=== PATIENT | female | born 1950 | race Caucasian/White ===

== ENCOUNTER 2022-10-22 14:38 | Outpatient (REF) | payer MEDICARE, SELFPAY ==
[2022-10-22 16:38] LABS: MANUAL DIFF FLAG NO
[2022-10-22 17:34] LABS: Basophils Percent Auto 0.5 % (0-2); Eosinophils Absolute Auto 0.1 X10*3/uL (0.0-0.4); Eosinophils Percent Auto 2.2 % (0-4); Hematocrit 41.5 % (37.0-47.0); Hemoglobin 13.5 g/dl (12.0-16.0); Imm Gran Abs Auto 0.01 X10*3/uL (0.00-0.03); Imm Gran Pct Auto 0.2 % (0.0-0.4); Lymphocytes Absolute Auto 1.2 X10*3/uL (1.2-4.9); Lymphocytes Percent Auto 29.8 % (20-40); Mean Corpuscular HGB Conc 32.5 g/dl (31.0-35.0); Mean Corpuscular Hemoglobin 28.1 pg (27.0-33.0); Mean Corpuscular Volume 86.3 fL (80.0-98.0); Mean Platelet Volume 10.7 fL (9.4-12.3); Monocytes Absolute Auto 0.4 X10*3/uL (0.1-1.2); Monocytes Percent Auto 8.8 % (2-11); Neutrophils Absolute Auto 2.4 x10*3/uL (2.0-8.3); Neutrophils Percent Auto 58.5 % (45-73); Platelet Count 339 X10*3/uL (160-400); Red Blood Count 4.81 X10*6/uL (4.20-5.50); Red Cell Distribution Width 14.6 % (11.0-16.0); White Blood Count 4.1 X10*3/uL (4.8-10.8)
[2022-10-22 18:06] LABS: Alanine Aminotransferase 14 U/L (0-31); Albumin Level 4.4 g/dL (3.5-5.0); Alkaline Phosphatase 77 U/L (39-117); Anion Gap 14 (12-20); Aspartate Amino Transferase 19 U/L (5-31); Bilirubin Total 0.3 mg/dL (0.0-1.0); Blood Urea Nitrogen 24 mg/dL (9-16); C Reactive Protein < 0.10 mg/dL (< or = 0.50); Calcium 9.9 mg/dL (8.4-10.2); Carbon Dioxide 27 mmol/L (22-29); Chloride 105 mmol/L (96-108); Estimated Glomerular Filt Rate 49; Glucose Random 89 mg/dL (60-115); Potassium 4.4 mmol/L (3.3-5.1); Sodium 142 mmol/L (135-145); Total Protein 7.1 g/dL (6.5-8.0)
[2022-10-22 19:00] LABS: Erythrocyte Sedimentation Rate 7 MM/HR (0-20)
[2022-10-25 08:52] LABS: HBsAGNum1 0.35 S/CO (0.00-0.99); Hepatitis A Antibody IgM 0.16 Index (0-0.79); Hepatitis B Core Antibody Nonreactive (Nonreactive); Hepatitis B Surface Antigen Negative (Negative); ~HepC Num1 0.16 S/CO (0.00-0.79); ~Hepatitis A Antibody IgM Nonreactive (Nonreactive); ~Hepatitis B Surface Antibody NONREACTIVE (Nonreactive); ~Hepatitis C Antibody Nonreactive (Nonreactive)
[2022-10-25 11:43] LABS: Complement C3 100 mg/dL (83-193)
[2022-10-25 12:17] LABS: IgA 177 mg/dL (70-320); IgG 1277 mg/dL (600-1540); IgM 135 mg/dL (50-300)
[2022-10-26 19:28] LABS: Anti DNA DS Antibody 4 IU/mL; Antibody to SS-A Antigen <1.0 NEG AI (<1.0 NEG); Antibody to SS-B Antigen <1.0 NEG AI (<1.0 NEG); SM/Ribonucleoprotein Ab <1.0 NEG AI (<1.0 NEG); Smith Protein <1.0 NEG AI (<1.0 NEG)
[2022-10-26 22:54] LABS: Prot Elec - Albumin 4.4 g/dL (3.8-4.8); Prot Elec - Alpha1 0.3 g/dL (0.2-0.3); Prot Elec - Alpha2 0.7 g/dL (0.5-0.9); Prot Elec - Beta 1 0.4 g/dL (0.4-0.6); Prot Elec - Beta 2 0.3 g/dL (0.2-0.5); Prot Elec - Gamma 1.1 g/dL (0.8-1.7); Prot Elec - Total Protein 7.1 g/dL (6.1-8.1)
[2022-10-28 12:39] LABS: Vitamin D 25-OH, D2 <4 ng/mL; Vitamin D 25-OH, D3 96 ng/mL; Vitamin D 25-OH, Total 96 ng/mL (30-100)
[2022-10-30 09:10] LABS: Other Ref Test - Misc SEE COMMENTS
== END 2022-10-22 14:39 | disposition home or self-care (01) ==
LOC: HO.LAB 14:38
PROVIDERS: PCP Dermatology; Visit Provider Student in an Organized Health Care Education/Training Program
DX: M34.9 Systemic sclerosis, unspecified (principal); M81.0 Age-related osteoporosis without current pathological fracture; K21.9 Gastro-esophageal reflux disease without esophagitis; R13.10 Dysphagia, unspecified; Z13.21 Encounter for screening for nutritional disorder; Z11.59 Encounter for screening for other viral diseases; Z72.89 Other problems related to lifestyle; Z79.899 Other long term (current) drug therapy
CPT/HCPCS: 80053; 82306; 82784; 83519; 84165; 85025; 85652; 86140; 86160; 86225; 86235; 86334; 86704; 86706; 86709; 86803; 87340; 99202

== ENCOUNTER 2023-04-22 07:09 | Outpatient (AMB) | payer MEDICARE, SELFPAY ==
--- NOTE | 2023-04-22 07:37 | MHC.OFFVIS ---
Intake Vital Signs 04/22/23 07:38 Height 5 ft 3 in Weight 107 lb 2.314 oz BMI 19.0 BP 124/60 Blood Pressure Location Lt brachial Position Sitting Pulse 49 L Pulse Source Pulse Oximeter Temp 97 F Temp Source Skin Pulse Oximetry (%) 93 Oxygen Delivery Method Room Air Intake Visit Reasons: LSSc Intake Note: Pt last seen 10/22/22 presents today for follow up and test results. Alendronate once weekly Reports recurrent UTI's since last visit. 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 States that she only started taking alendronate December of 2022. States that she takes it with very little applesauce and she is able to tolerate it well. States that she had a couple of UTI over the last few months and will be following up soon with her new PCP. She is doing well otherwise. Denies any cough or shortness of breath. Initial history: This is a 72-year-old female presents for evaluation of limited scleroderma. Her previous nurse first assist left the practice. 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 Patient also had also a esophageal dysmotility and hiatal hernia. Patient states that she is doing well overall. Occasional swelling and stiffness of her knuckles, not currently. Raynaud's is generally well controlled. Takes amlodipine 10 mg daily and has hand and toe warmers. Is very careful in the cold. She denies any shortness of breath. Walks the dog for 30 minutes, 1-1/2 miles without cough or shortness of breath. Is able to do 12 steps without stopping or shortness of breath. States that her GERD is relatively well controlled. She tries not to take omeprazole every day. Over the last 4 years she has been much more careful with swallowing food as sometimes food gets stuck. She makes sure to cut meat very small so they do not get stuck. No new skin changes. [facility] Medical History Presbyopia Dysphagia Osteoporosis Degenerative joint disease Disorder of connective tissue Raynaud's disease Surgical History H/O total hysterectomy Social History Alcohol intake: current Alcohol intake frequency: holidays/special occasions only Alcohol type: wine Patient Tobacco Use Status: Never used Tobacco Review of Systems Const Denies fever(s), Denies weight gain and Denies weight loss Card Denies dyspnea and Denies dyspnea on exertion Resp Denies no additional complaints, Denies cough, Denies dyspnea and Denies dyspnea on exertion Physical Exam Vital Signs: Last Vital Signs Temp 97 F 04/22/23 07:38 Pulse 49 L 04/22/23 07:38 BP 124/60 04/22/23 07:38 Pulse Ox 93 04/22/23 07:38 Oxygen Delivery Method Room Air 04/22/23 07:38 BMI result Body Mass Index 19.0 Const General: cooperative, healthy appearing and comfortable Nutritional Appearance: average body habitus Orientation/consciousness: patient oriented x3 Limitations: no limitations HEENT Head: Yes normocephalic and Yes atraumatic Mouth: moist mucous membranes Resp Effort & Inspection: normal respiratory effort and able to speak in complete sentences Auscultation: clear to auscultation bilaterally Cardio Rate: regular rate Rhythm: regular rhythm GI Inspection: No distended Palpation (GI): Soft to palpation and nontender Neuro General: patient oriented x3 Extrem Other: Multiple telangiectasias 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 DsDNA normal? CRP normal? CMP unremarkable? C3 92 (90-207) C4 normal Labs 12/2021 C3/C4 normal? Urinalysis with microscopic normal CMP unremarkable CBC unremarkable? ESR/CRP normal DsDNA normal Labs 07/2020? C3 56 (>83) C4 normal? RF/CCP/dsDNA/CRP/CPK/ESR all normal/negative DEXA 10/2021? L-spine T-score-1.0? Right Femoral neck T-score -2.5? Right total hip T-score -3.0 Assessment & Plan Assessment & Plan (1) Limited scleroderma: Comment: dx 2006. 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 Doing well overall. No new complaints GERD well controlled with omeprazole.. Raynaud's well controlled. Continue amlodipine and continue conservative measures 2D echo 08/2022 is unremarkable with no signs of pulmonary hypertension Most recent labs were unremarkable Labs before next visit in 6 months (2) Osteoporosis: Code(s): M81.0 - Age-related osteoporosis without current pathological fracture Qualifiers: Osteoporosis type: age-related Presence of current pathological fracture: without current pathological fracture Qualified Code(s): M81.0 - Age-related osteoporosis without current pathological fracture Plan: DEXA 10/2021 showed T-score-3.0 at the right hip. Patient started alendronate 70 mg weekly 12/2022. Well tolerated. Plan to check DEXA 12/2024 (3) Immunization counseling: Code(s): Z71.85 - Encounter for immunization safety counseling Plan: Patient stated that she generally does not get vaccines. Advised patient to try to follow social distancing practices and wear a mask when in a crowded places especially as respiratory viral infections are on the rise this season. Plan I spent 25 minutes reviewing patient's chart, evaluating patient, ordering diagnostic workup, counseling patient and documenting in the chart Orders: Orders Comprehensive Met. Panel 6 Months M34.9 - Systemic sclerosis, unspecified C Reactive Protein 6 Months M34.9 - Systemic sclerosis, unspecified UA w Microscopic 6 Months M34.9 - Systemic sclerosis, unspecified Other Ref Test - Misc 6 Months M81.0 - Age-related osteoporosis without current pathological fracture Complete Blood Count Auto Diff 6 Months M34.9 - Systemic sclerosis, unspecified Erythrocyte Sedimentation Rate 6 Months M34.9 - Systemic sclerosis, unspecified Complement C3 6 Months M34.9 - Systemic sclerosis, unspecified Anti DNA DS Antibody 6 Months M34.9 - Systemic sclerosis, unspecified Complement C4 6 Months M34.9 - Systemic sclerosis, unspecified Protein Creatinine Ratio, Ur 6 Months M34.9 - Systemic sclerosis, unspecified Coding Level of Care Code Est Pt Level 4 (78418) Diagnoses Limited scleroderma M34.9 Age-related osteoporosis without current pathological fracture M81.0 Osteoporosis type: age-related Presence of current pathological fracture: without current pathological fracture Immunization counseling Z71.85
[2023-04-22 07:38] VITALS: BP 124/60; PULSE 49; TEMP 36.1; O2SAT 93; BMI 19.0
== END 2023-04-22 08:02 | disposition home or self-care (01) ==
PROVIDERS: PCP Family Medicine; Visit Provider Student in an Organized Health Care Education/Training Program
DX: M34.9 Systemic sclerosis, unspecified (principal); M81.0 Age-related osteoporosis without current pathological fracture; Z71.85 Encounter for immunization safety counseling
CPT/HCPCS: 99214

== ENCOUNTER → 2023-04-22 07:09 | Outpatient (BNVA) | payer MEDICARE, SELFPAY | PROVIDERS: Visit Provider Student in an Organized Health Care Education/Training Program | DX: M34.9 Systemic sclerosis, unspecified (principal); M81.0 Age-related osteoporosis without current pathological fracture; Z71.85 Encounter for immunization safety counseling | CPT/HCPCS: 99212 ==

== ENCOUNTER 2023-10-13 06:21 | Outpatient (REF) | payer MEDICARE, SELFPAY ==
[2023-10-13 06:43] LABS: MANUAL DIFF FLAG NO
[2023-10-13 07:42] LABS: Appearance Urine Clear; Color Urine Yellow; Glucose Urine UA Negative (Negative); Leukocyte Esterase Urine Trace (Negative); Nitrite Urine Negative (Negative); Specific Gravity - Urine <= 1.005 (1.005-1.025); UMIC TRIGGER UA YES; Urine Blood Trace (Negative); Urine Ketones Negative (Negative); Urine Protein Negative (Neg-Trace)
[2023-10-13 07:42] LABS: Eosinophils Absolute Auto 0.1 X10*3/uL (0.0-0.4); Eosinophils Percent Auto 2.6 % (0-4); Hematocrit 43.9 % (37.0-47.0); Hemoglobin 14.6 g/dl (12.0-16.0); Imm Gran Abs Auto 0.01 X10*3/uL (0.00-0.03); Imm Gran Pct Auto 0.3 % (0.0-0.4); Lymphocytes Absolute Auto 1.1 X10*3/uL (1.2-4.9); Lymphocytes Percent Auto 36.5 % (20-40); Mean Corpuscular HGB Conc 33.3 g/dl (31.0-35.0); Mean Corpuscular Hemoglobin 29.4 pg (27.0-33.0); Mean Corpuscular Volume 88.3 fL (80.0-98.0); Mean Platelet Volume 10.3 fL (9.4-12.3); Monocytes Absolute Auto 0.3 X10*3/uL (0.1-1.2); Monocytes Percent Auto 10.9 % (2-11); Neutrophils Absolute Auto 1.5 x10*3/uL (2.0-8.3); Neutrophils Percent Auto 48.7 % (45-73); Platelet Count 316 X10*3/uL (160-400); Red Blood Count 4.97 X10*6/uL (4.20-5.50); Red Cell Distribution Width 13.8 % (11.0-16.0)
[2023-10-13 07:47] LABS: Bacteria Urine 1+ (None Seen); Hyaline Casts Urine 0-2 /LPF (0-2); RBC Urine 0-2 /HPF (0-2); Squamous Epithelial Cell Urine 0-2 /HPF (0-2); WBC Urine 0-5 /HPF (0-5)
[2023-10-13 08:09] LABS: Creatinine Urine 15.15 mg/dL; Total Protein Urine Random < 7 mg/dL (<12)
[2023-10-13 08:15] LABS: Alanine Aminotransferase 15 U/L (0-31); Albumin Level 4.4 g/dL (3.5-5.0); Alkaline Phosphatase 44 U/L (39-117); Anion Gap 13 (12-20); Aspartate Amino Transferase 22 U/L (5-31); Bilirubin Total 0.4 mg/dL (0.0-1.0); Blood Urea Nitrogen 20 mg/dL (9-16); C Reactive Protein < 0.10 mg/dL (< or = 0.50); Calcium 10.1 mg/dL (8.4-10.2); Carbon Dioxide 25 mmol/L (22-29); Chloride 107 mmol/L (96-108); Estimated Glomerular Filt Rate > 60; Glucose Random 91 mg/dL (60-115); Potassium 4.3 mmol/L (3.3-5.1); Sodium 141 mmol/L (135-145); Total Protein 7.7 g/dL (6.5-8.0)
[2023-10-13 08:22] LABS: Erythrocyte Sedimentation Rate 5 MM/HR (0-20)
[2023-10-14 15:44] LABS: Complement C3 103 mg/dL (83-193)
[2023-10-14 21:24] LABS: Anti DNA DS Antibody 4 IU/mL
[2023-10-16 17:08] LABS: Procollagen Type I Intact N 15 mcg/L (see note)
== END 2023-10-13 06:22 | disposition home or self-care (01) ==
LOC: HO.LAB 06:21
PROVIDERS: PCP Family Medicine; Visit Provider Student in an Organized Health Care Education/Training Program
DX: M34.9 Systemic sclerosis, unspecified (principal)
CPT/HCPCS: 36415; 80053; 81001; 82570; 83519; 84156; 85025; 85652; 86140; 86160; 86225

== ENCOUNTER 2023-10-17 07:48 | Outpatient (AMB) | payer MEDICARE, SELFPAY ==
--- NOTE | 2023-10-17 07:56 | A.OFFVIS_ITS ---
Vital Signs 10/17/23 07:58 Height 5 ft 3 in Weight 106 lb 14.787 oz BMI 18.9 BP 110/64 Blood Pressure Location Rt brachial Position Sitting Pulse 76 Pulse Source Pulse Oximeter Pulse Oximetry (%) 99 Oxygen Delivery Method Room Air Intake Visit Reasons: cc Intake Note: Patient last seen 04/22/23 presents today for follow up and test results. 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 Doing well overall. States that she gets intermittent teeth sensitivity a sensation that her teeth are cold. When she had her dental cleaning last visit she would advised to use sensitive toothpaste. She gets intermittent pain in her knuckles, but symptoms are very minimal and do not last long. Gets recurrent episodes of heartburn about twice a week which goes away with Tums. Continues with omeprazole 20 mg daily. Otherwise she has been feeling well. Denies any chest pain or shortness of breath. Denies any cough. Initial history: This is a 72-year-old female presents for evaluation of limited scleroderma. Her previous advanced practice rn left the practice. 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 Patient also had also a esophageal dysmotility and hiatal hernia. Patient states that she is doing well overall. Occasional swelling and stiffness of her knuckles, not currently. Raynaud's is generally well controlled. Takes amlodipine 10 mg daily and has hand and toe warmers. Is very careful in the cold. She denies any shortness of breath. Walks the dog for 30 minutes, 1-1/2 miles without cough or shortness of breath. Is able to do 12 steps without stopping or shortness of breath. States that her GERD is relatively well controlled. She tries not to take omeprazole every day. Over the last 4 years she has been much more careful with swallowing food as sometimes food gets stuck. She makes sure to cut meat very small so they do not get stuck. No new skin changes. [facility] Medical History Presbyopia Dysphagia Osteoporosis Degenerative joint disease Disorder of connective tissue Raynaud's disease Surgical History H/O total hysterectomy Social History Alcohol intake: current Alcohol intake frequency: holidays/special occasions only Alcohol type: wine Patient Tobacco Use Status: Never used Tobacco Review of Systems Const Denies fever(s), Denies weight gain and Denies weight loss Card Denies dyspnea and Denies dyspnea on exertion Resp Denies no additional complaints, Denies cough, Denies dyspnea and Denies dyspnea on exertion Physical Exam Vital Signs: Last Vital Signs Pulse 76 10/17/23 07:58 BP 110/64 10/17/23 07:58 Pulse Ox 99 10/17/23 07:58 Oxygen Delivery Method Room Air 10/17/23 07:58 BMI result Body Mass Index 18.9 Const General: cooperative, healthy appearing and comfortable Nutritional Appearance: average body habitus Orientation/consciousness: patient oriented x3 Limitations: no limitations HEENT Head: Yes normocephalic and Yes atraumatic Mouth: moist mucous membranes Resp Effort & Inspection: normal respiratory effort and able to speak in complete sentences Auscultation: clear to auscultation bilaterally Cardio Rate: regular rate Rhythm: regular rhythm GI Inspection: No distended Palpation (GI): Soft to palpation and nontender Neuro General: patient oriented x3 Extrem Other: Multiple telangiectasias Bilateral sclerodactyly Bilateral osteoarthritic changes of both hands with Heberden's nodes Mild swelling over the right ulnar styloid nontender (could be a ganglion cyst) Right 3rd MCP swelling and tenderness Left 3rd MCP swelling and tenderness Flexion contracture of right hand MCPs and slight ulnar deviation Negative MCP squeeze test bilateral Normal nailfold capillaroscopy Results Reviewed Results Reviewed: Labs 06/2021 C3 34(83-193) C4-8 (15-57) CRP/CPK Labs 05/2022? DsDNA normal? CRP normal? CMP unremarkable? C3 92 (90-207) C4 normal Labs 12/2021 C3/C4 normal? Urinalysis with microscopic normal CMP unremarkable CBC unremarkable? ESR/CRP normal DsDNA normal Labs 07/2020? C3 56 (>83) C4 normal? RF/CCP/dsDNA/CRP/CPK/ESR all normal/negative DEXA 10/2021? L-spine T-score-1.0? Right Femoral neck T-score -2.5? Right total hip T-score -3.0 Assessment & Plan Assessment & Plan (1) Limited scleroderma: Comment: dx 2005. 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 Doing well overall. No new complaints Couple of swollen joints on exam today. Advised patient to let me know if she starts having more joints involved, or more severe and persistent symptoms. Can consider hydroxychloroquine GERD well controlled with omeprazole 20 mg daily Raynaud's well controlled. Continue amlodipine and continue conservative measures 2D echo 08/2022 is unremarkable with no signs of pulmonary hypertension. Plan to repeat 2D echo and PFTs next year to screen for ILD/PAH Labs unremarkable Labs before next visit in 6 months (2) Osteoporosis: Comment: Alendronate started 12/2022 Code(s): M81.0 - Age-related osteoporosis without current pathological fracture Category: Medical Qualifiers: Osteoporosis type: age-related Presence of current pathological fracture: without current pathological fracture Qualified Code(s): M81.0 - Age- related osteoporosis without current pathological fracture Plan: DEXA 10/2021 showed T-score-3.0 at the right hip. Patient started alendronate 70 mg weekly 12/2022. Well tolerated. Plan to check DEXA 12/2024 Plan I spent 25 minutes reviewing patient's chart, evaluating patient, ordering diagnostic workup, counseling patient and documenting in the chart Orders: Orders Anti DNA DS Antibody 6 Months M34.9 - Systemic sclerosis, unspecified Complement C4 6 Months M34.9 - Systemic sclerosis, unspecified C Reactive Protein 6 Months M34.9 - Systemic sclerosis, unspecified Protein Creatinine Ratio, Ur 6 Months M34.9 - Systemic sclerosis, unspecified UA w Microscopic 6 Months M34.9 - Systemic sclerosis, unspecified Complement C3 6 Months M34.9 - Systemic sclerosis, unspecified Erythrocyte Sedimentation Rate 6 Months M34.9 - Systemic sclerosis, unspecified Complete Blood Count Auto Diff 6 Months M34.9 - Systemic sclerosis, unspecified Comprehensive Met. Panel 6 Months M34.9 - Systemic sclerosis, unspecified
[2023-10-17 07:58] VITALS: BP 110/64; PULSE 76; O2SAT 99; BMI 18.9
== END 2023-10-17 08:19 | disposition home or self-care (01) ==
PROVIDERS: PCP Dermatology; Visit Provider Student in an Organized Health Care Education/Training Program
DX: M34.9 Systemic sclerosis, unspecified (principal); M81.0 Age-related osteoporosis without current pathological fracture
CPT/HCPCS: 99214

== ENCOUNTER → 2023-10-17 07:48 | Outpatient (BNVA) | payer MEDICARE, SELFPAY | PROVIDERS: PCP Dermatology; Visit Provider Student in an Organized Health Care Education/Training Program | DX: M34.9 Systemic sclerosis, unspecified (principal); M81.0 Age-related osteoporosis without current pathological fracture | CPT/HCPCS: 99212 ==

== ENCOUNTER 2024-04-13 07:03 | Outpatient (REF) | payer MEDICARE, SELFPAY ==
[2024-04-13 07:27] LABS: MANUAL DIFF FLAG NO
[2024-04-13 07:47] LABS: Basophils Percent Auto 0.8 % (0-2); Eosinophils Absolute Auto 0.3 X10*3/uL (0.0-0.4); Hematocrit 42.7 % (37.0-47.0); Imm Gran Abs Auto 0.02 X10*3/uL (0.00-0.03); Imm Gran Pct Auto 0.4 % (0.0-0.4); Lymphocytes Percent Auto 20.1 % (20-40); Mean Corpuscular HGB Conc 32.8 g/dl (31.0-35.0); Mean Corpuscular Hemoglobin 28.4 pg (27.0-33.0); Mean Corpuscular Volume 86.6 fL (80.0-98.0); Mean Platelet Volume 9.4 fL (9.4-12.3); Monocytes Absolute Auto 0.7 X10*3/uL (0.1-1.2); Monocytes Percent Auto 13.2 % (2-11); Neutrophils Absolute Auto 3.1 x10*3/uL (2.0-8.3); Neutrophils Percent Auto 60.5 % (45-73); Platelet Count 445 X10*3/uL (160-400); Red Blood Count 4.93 X10*6/uL (4.20-5.50); Red Cell Distribution Width 13.6 % (11.0-16.0); White Blood Count 5.2 X10*3/uL (4.8-10.8)
[2024-04-13 08:22] LABS: Alanine Aminotransferase 21 U/L (0-31); Albumin Level 4.2 g/dL (3.5-5.0); Alkaline Phosphatase 64 U/L (39-117); Anion Gap 15 (12-20); Aspartate Amino Transferase 22 U/L (5-31); Bilirubin Total 0.4 mg/dL (0.0-1.0); Blood Urea Nitrogen 19 mg/dL (9-16); C Reactive Protein 0.34 mg/dL (< or = 0.50); Calcium 9.8 mg/dL (8.4-10.2); Carbon Dioxide 26 mmol/L (22-29); Chloride 105 mmol/L (96-108); Estimated Glomerular Filt Rate > 60; Glucose Random 89 mg/dL (60-115); Potassium 3.6 mmol/L (3.3-5.1); Sodium 142 mmol/L (135-145); Total Protein 7.2 g/dL (6.5-8.0)
[2024-04-13 08:24] LABS: Erythrocyte Sedimentation Rate 16 MM/HR (0-20)
[2024-04-16 11:03] LABS: Complement C3 131 mg/dL (83-193)
[2024-04-16 19:53] LABS: Anti DNA DS Antibody 3 IU/mL
== END 2024-04-13 07:04 | disposition home or self-care (01) ==
LOC: HO.LAB 07:03
PROVIDERS: PCP Nurse Practitioner Family; Visit Provider Student in an Organized Health Care Education/Training Program
DX: M34.9 Systemic sclerosis, unspecified (principal)
CPT/HCPCS: 36415; 80053; 85025; 85652; 86140; 86160; 86225

== ENCOUNTER 2024-04-16 07:40 | Outpatient (REF) | payer MEDICARE, SELFPAY ==
[2024-04-16 07:58] LABS: Appearance Urine Cloudy; Color Urine Yellow; Glucose Urine UA Negative (Negative); Leukocyte Esterase Urine Moderate (2+) (Negative); Nitrite Urine Positive (Negative); PH 7.5 (5.0-9.0); UMIC TRIGGER UA YES; Urine Blood Trace (Negative); Urine Ketones Negative (Negative); Urine Protein Negative (Neg-Trace)
[2024-04-16 08:00] LABS: Bacteria Urine 4+ (None Seen); Hyaline Casts Urine 0-2 /LPF (0-2); WBC Urine >50 /HPF (0-5)
[2024-04-16 08:19] LABS: Creatinine Urine 64.18 mg/dL; Protein/Creatinine Ratio, Ur 0.12 (<0.2); Total Protein Urine Random 8 mg/dL (<12)
== END 2024-04-16 07:41 | disposition home or self-care (01) ==
LOC: HO.LNP 07:40
PROVIDERS: Visit Provider Student in an Organized Health Care Education/Training Program
DX: M34.9 Systemic sclerosis, unspecified (principal)
CPT/HCPCS: 81001; 82570; 84156

== ENCOUNTER 2024-04-20 08:04 | Outpatient (AMB) | payer MEDICARE, SELFPAY ==
--- NOTE | 2024-04-20 08:12 | A.OFFVIS_ITS ---
Vital Signs 04/20/24 08:15 Height 5 ft 3 in Weight 104 lb 11.513 oz BMI 18.5 BP 120/60 Blood Pressure Location Rt brachial Position Sitting Pulse 76 Pulse Source Pulse Oximeter Pulse Oximetry (%) 98 Oxygen Delivery Method Room Air Intake Visit Reasons: LSSc/CM Intake Note: Patient presents for LSSc. 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 Doing well overall. She states that she continues to have intermittent flare-ups of joint pain usually affecting her right hand, that occur about once a week and lasts a few hours. She denies any morning stiffness. She gets intermittent heartburn. She uses omeprazole about once a month. Takes Tums more frequently. Otherwise she has been feeling well. Denies any chest pain or shortness of breath. Denies any cough. Initial history: This is a 72-year-old female presents for evaluation of limited scleroderma. Her previous forming yardage control operator left the practice. 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 Patient also had also a esophageal dysmotility and hiatal hernia. Patient states that she is doing well overall. Occasional swelling and stiffness of her knuckles, not currently. Raynaud's is generally well controlled. Takes amlodipine 10 mg daily and has hand and toe warmers. Is very careful in the cold. She denies any shortness of breath. Walks the dog for 30 minutes, 1-1/2 miles without cough or shortness of breath. Is able to do 12 steps without stopping or shortness of breath. States that her GERD is relatively well controlled. She tries not to take omeprazole every day. Over the last 4 years she has been much more careful with swallowing food as sometimes food gets stuck. She makes sure to cut meat very small so they do not get stuck. No new skin changes. [facility] Medical History Presbyopia Dysphagia Osteoporosis Degenerative joint disease Disorder of connective tissue Raynaud's disease Surgical History H/O total hysterectomy Social History Alcohol intake: current Alcohol intake frequency: holidays/special occasions only Alcohol type: wine Patient Tobacco Use Status: Never used Tobacco Review of Systems Const Denies fever(s), Denies weight gain and Denies weight loss Card Denies dyspnea and Denies dyspnea on exertion Resp Denies no additional complaints, Denies cough, Denies dyspnea and Denies dyspnea on exertion GI Reports heartburn Musc Reports arthralgias and Denies stiffness Physical Exam Vital Signs: Last Vital Signs Pulse 76 04/20/24 08:15 BP 120/60 04/20/24 08:15 Pulse Ox 98 04/20/24 08:15 Oxygen Delivery Method Room Air 04/20/24 08:15 BMI result Body Mass Index 18.5 Const General: cooperative, healthy appearing and comfortable Nutritional Appearance: average body habitus Orientation/consciousness: patient oriented x3 Limitations: no limitations HEENT Head: Yes normocephalic and Yes atraumatic Mouth: moist mucous membranes Resp Effort & Inspection: normal respiratory effort and able to speak in complete sentences Auscultation: clear to auscultation bilaterally Cardio Rate: regular rate Rhythm: regular rhythm GI Inspection: No distended Palpation (GI): Soft to palpation and nontender Neuro General: patient oriented x3 Extrem Other: Multiple telangiectasias Bilateral sclerodactyly Bilateral osteoarthritic changes of both hands with Heberden's nodes Synovial thickening over the right ulnar styloid , nontender Multiple MCPs with synovial thickening both hands but none are tender today Flexion contracture of right hand MCPs and slight ulnar deviation Negative MCP squeeze test bilateral Decent bilateral hand funeral car driver strength Normal nailfold capillaroscopy Results Reviewed Results Reviewed: Labs 06/2021 C3 34(83-193) C4-8 (15-57) CRP/CPK Labs 05/2022? DsDNA normal? CRP normal? CMP unremarkable? C3 92 (90-207) C4 normal Labs 12/2021 C3/C4 normal? Urinalysis with microscopic normal CMP unremarkable CBC unremarkable? ESR/CRP normal DsDNA normal Labs 07/2020? C3 56 (>83) C4 normal? RF/CCP/dsDNA/CRP/CPK/ESR all normal/negative DEXA 10/2021? L-spine T-score-1.0? Right Femoral neck T-score -2.5? Right total hip T-score -3.0 Assessment & Plan Assessment & Plan (1) Limited scleroderma: Comment: dx 2005. 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 Doing well overall. No new complaints She continues to have very subtle intermittent symptoms of inflammatory arthritis. At this time, no DMARDs needed. Advised patient to let me know if she starts having more joints involved, or more severe and persistent symptoms. Can consider hydroxychloroquine GERD well controlled with omeprazole 20 mg daily as needed Raynaud's well controlled. Continue amlodipine and continue conservative measures 2D echo 08/2022 is unremarkable with no signs of pulmonary hypertension. PFT, 2D echo and labs before next visit in 9 months (2) Osteoporosis: Comment: Alendronate started 12/2022 Code(s): M81.0 - Age-related osteoporosis without current pathological fracture Category: Medical Qualifiers: Osteoporosis type: age-related Presence of current pathological fracture: without current pathological fracture Qualified Code(s): M81.0 - Age- related osteoporosis without current pathological fracture Plan: DEXA 10/2021 showed T-score-3.0 at the right hip. Patient started alendronate 70 mg weekly 12/2022. Well tolerated. Plan to check DEXA 12/2024 Plan I spent 25 minutes reviewing patient's chart, evaluating patient, ordering diagnostic workup, counseling patient and documenting in the chart Orders: Orders Anti DNA DS Antibody 9 Months M32.9 - Systemic lupus erythematosus, unspecified Complement C3 9 Months M32.9 - Systemic lupus erythematosus, unspecified Erythrocyte Sedimentation Rate 9 Months M32.9 - Systemic lupus erythematosus, unspecified Protein Creatinine Ratio, Ur 9 Months M32.9 - Systemic lupus erythematosus, u nspecified UA w Microscopic 9 Months M32.9 - Systemic lupus erythematosus, unspecified Vitamin D 25-OH (D2 and D3) 9 Months E55.9 - Vitamin D deficiency, unspecified Complement C4 9 Months M32.9 - Systemic lupus erythematosus, unspecified C Reactive Protein 9 Months M32.9 - Systemic lupus erythematosus, unspecified Complete Blood Count Auto Diff 9 Months M32.9 - Systemic lupus erythematosus, unspecified Comprehensive Met. Panel 9 Months M32.9 - Systemic lupus erythematosus, unspecified PFT pulmonary function test 8 Months R06.02 - Shortness of breath CA echo transthoracic complete 8 Months R06.02 - Shortness of breath XR DEXA axial skeleton 12/25/24 M81.0 - Age-related osteoporosis without current pathological fracture Coding Level of Care Code Est Pt Level 4 (09173) Diagnoses Limited scleroderma M34.9 Age-related osteoporosis without current pathological fracture M81.0 Osteoporosis type: age-related Presence of current pathological fracture: without current pathological fracture
[2024-04-20 08:15] VITALS: BP 120/60; PULSE 76; O2SAT 98; BMI 18.5
== END 2024-04-20 08:40 | disposition home or self-care (01) ==
PROVIDERS: PCP Nurse Practitioner Family; Visit Provider Student in an Organized Health Care Education/Training Program
DX: M34.9 Systemic sclerosis, unspecified (principal); M81.0 Age-related osteoporosis without current pathological fracture
CPT/HCPCS: 99214

== ENCOUNTER → 2024-04-20 08:04 | Outpatient (BNVA) | payer MEDICARE, SELFPAY | PROVIDERS: PCP Nurse Practitioner Family; Visit Provider Student in an Organized Health Care Education/Training Program | DX: M81.0 Age-related osteoporosis without current pathological fracture (principal); M34.9 Systemic sclerosis, unspecified | CPT/HCPCS: 99212 ==

== ENCOUNTER 2024-12-14 08:20 | Outpatient (REF) | payer MEDICARE, SELFPAY ==
--- NOTE | 2024-12-14 08:50 | PFT_ITS ---
Indication: Scleroderma Spirometry FEV1 to FVC 66%; FEV1 1.8 L; FVC 2.74 L. No significant response to bronchodilators noted. Lung Volumes Total lung capacity 116% predicted; residual volume 143% predicted Diffusion Capacity DLCO 56% predicted Comparisons None Interpretation There is an obstructive ventilatory defect consistent with mild COPD. No significant response to bronchodilators noted. Significant air trapping and trend of hyperinflation noticed secondary to the COPD. The patient also has a moderate diffusion impairment. This could be secondary to underlying parenchymal disease such as emphysema although can not rule out pulmonary vascular disease specially with a history of scleroderma. Clinical correlation warranted. MTDD
--- NOTE | 2024-12-14 09:27 | CA_ITS ---
Transthoracic Echocardiogram Patient (Last, First, Middle): Soni Colin, Gender: Female Date of : 1950 Age: 74 Procedure Date: 12/14/2024 Procedure Type: Transthoracic Echocardiogram Location: OP Height: 160.02 cm Weight: 47.17 kg BSA: 1.46 m2 Heart Rate: 60 bpm BP: 120 / 60 mmHg Channel Account Manager: SB Referring MD: Julian Trevino MD Symptoms: R06.02 - Shortness of breath Study Quality: Adequate ECG Rhythm: Sinus Conclusions: - Normal left ventricular size, thickness, systolic function, and wall motion. The visually estimated ejection fraction is between 65-70%. Diastolic function is normal for age. - Normal right ventricular cavity size and systolic function. - There is mild aortic valve stenosis. Findings Left Ventricle Normal left ventricular size, thickness, systolic function, and wall motion. The visually estimated ejection fraction is between 65-70%. Diastolic function is normal for age. Right Ventricle Normal right ventricular cavity size and systolic function. Atria The left atrium is normal in size. The right atrium was not well visualized. Aortic Valve There is a normal trileaflet aortic valve. There is mild calcification of the aortic valve. There is mild aortic valve stenosis. The peak aortic velocity is 2.14 m/s. The mean gradient is 9 mmHg. The aortic valve area is 1.19 cm2. There is trace (trivial) aortic valve regurgitation. Mitral Valve Normal mitral valve structure and function. There is no mitral valve regurgitation. There is no mitral valve stenosis. Pulmonic Valve The pulmonic valve is likely normal. Tricuspid Valve Normal tricuspid valve structure. There is no tricuspid valve regurgitation. Normal right atrial pressure. There is no evidence of pulmonary hypertension. Great Vessels The visualized portions of the pulmonary artery and branches are normal. Venous The inferior vena cava is normal in size and collapses greater than 50% with inspiration. Pericardium/Pleural There is no evidence of pericardial effusion. Prior Study Comparison No prior study available for comparison. Measurements 2D Linear Measurements IVSd: 0.71 0.6-0.9/0.6-1.0 cm LVIDd: 4.12 3.9-5.3/4.2-5.9 cm LVIDd Index: 2.82 2.4-3.2/2.2-3.1 cm/m2 LVIDs: 2.18 2.0-3.6 cm LVPWd: 0.57 0.7-1.1 cm LA Diam: 2.80 2.7-3.8/3.0-4.0 cm LAIDs Index: 1.92 1.5-2.3 cm/m2 LV Mass: 91.39 67-162/88-224 g LV Mass Index: 62.60 43-95/49-115 g/m2 LVOT Diam: 1.80 3.0+(-)1.3 cm 2D Systolic Function EF 4C: 71.30 >55% EF 2C: 69.80 >55% Mitral Valve MV Pk E: 0.97 MV PK A: 0.66 MV Decel Time: 223.00 E/A: 1.50 E'Lateral: 9.25 E'Medial: 8.49 E/E' Med: 11.40 E/E' Lat: 10.50 PHT: 65.00 MVA PHT: 3.38 Decel [place]: 4.35 Aortic Valve AoV Pk Celso: 2.14 AoV Mn Celso: 1.35 AoV VTI: 0.47 AoV Pk Grad: 18.00 Aov Mn Grad: 9.00 REAGAN Cont.VTI: 1.19 LVOT LVOT Pk Celso: 0.95 LVOT Mn Celso: 0.62 LVOT VTI: 0.22 LVOT Pk Grad: 4.00 LVOT Mn Grad: 2.00 LVOT Diam: 1.80 LVOT Area: 2.54 Diastolic Function MV Pk E: 0.97 MV Pk A: 0.66 E/A: 1.50 E'Medial: 8.49 E/E' Med: 11.40 E' Laterial: 9.25 E/E' Lat: 10.50 Right Ventricle TAPSE (mm): 25.80 TVS' Celso: 13.80 Tricuspid Valve TR Pk Celso: 2.55 TR Pk Grad: 26.00 RA Press: 3.00 RVSP: 29.00 Great Vessels Aorta Sinus of Valsalva: 2.80 2.0-3.5 cm Ao Asc: 2.40 2.1-3.4 cm Updated in Other Vendor System with Status of Final Harley Banerjee MD electronically signed on 12/16/2024 11:13:19 PM with status of Final
[2024-12-14 09:32] VITALS: PULSE 71; O2SAT 100
== END 2024-12-14 08:21 | disposition home or self-care (01) ==
LOC: HO.RESP 08:20
PROVIDERS: PCP Nurse Practitioner Family; Visit Provider Student in an Organized Health Care Education/Training Program
DX: R06.02 Shortness of breath (principal)
CPT/HCPCS: 93306; 94010; 94640; 94727; 94729

== ENCOUNTER → 2024-12-14 08:50 | Outpatient (BNV) | payer MEDICARE, SELFPAY | PROVIDERS: PCP Nurse Practitioner Family; Visit Provider Hospitalist | DX: J44.9 Chronic obstructive pulmonary disease, unspecified (principal) | CPT/HCPCS: 94060; 94727; 94729 ==

== ENCOUNTER → 2024-12-14 09:27 | Outpatient (BNV) | payer MEDICARE, SELFPAY | PROVIDERS: PCP Nurse Practitioner Family; Visit Provider Internal Medicine Cardiovascular Disease | DX: R06.02 Shortness of breath (principal) | CPT/HCPCS: 93306 ==

== ENCOUNTER 2025-01-03 08:36 | Outpatient (REF) | payer MEDICARE, SELFPAY ==
--- NOTE | ~2025-01-03 | MM_ITS ---
EXAMINATION: DXA BONE DENSITY AXIAL HISTORY: M81.0 - Age-related osteoporosis without current pathological fracture TECHNIQUE: [employer] Dual energy absorptiometry (DEXA) of the lumbar spine, total left hip, and femoral neck was performed. COMPARISON: There are no prior studies for comparison. FINDINGS: The bone mineral density of the lumbar spine is 1.235 g/cm2, corresponding to a T-score of 0.5, and a Z-score of 2.8. This is indicative of normal bone mineral density. The bone mineral density of the left total hip is 0.676 g/cm2, corresponding to a T-score of -2.6, and a Z-score of -0.5. This is indicative of osteoporosis. The bone mineral density of the left femoral neck is 0.730 g/cm2, corresponding to a T-score of -2.2, and a Z-score of 0.1. This is indicative of osteopenia. MM/XR DEXA axial skeleton IMPRESSION: Based on bone mineral density, and according to World Health Organization (WHO) criteria, the diagnosis is consistent with osteoporosis. Statistically, 68% of repeat scans fall within 1 SD (+/- 0.010 g/cm2 for AP spine L1-L4) and 1 SD (+/- 0.012 g/cm2 for femur total) FRAX is a trademark of the [employer]'s [place] for Metabolic Bone Disease, a World Health Organization (WHO) Collaborating Center. Electronically signed by: Chris Vargas MD 01/03/2025 10:28 AM EDT
== END 2025-01-03 08:37 | disposition home or self-care (01) ==
LOC: HO.MAMMO 08:36
PROVIDERS: PCP Nurse Practitioner Family; Visit Provider Student in an Organized Health Care Education/Training Program
DX: M81.0 Age-related osteoporosis without current pathological fracture (principal)
CPT/HCPCS: 77080

== ENCOUNTER → 2025-01-03 09:15 | Outpatient (BNV) | payer MEDICARE, SELFPAY | PROVIDERS: PCP Nurse Practitioner Family; Visit Provider Radiology Diagnostic Radiology | DX: E28.39 Other primary ovarian failure (principal) | CPT/HCPCS: 77080 ==

== ENCOUNTER 2025-01-18 06:58 | Outpatient (REF) | payer MEDICARE, SELFPAY ==
[2025-01-18 07:30] LABS: MANUAL DIFF FLAG NO
[2025-01-18 07:57] LABS: Hematocrit 41.5 % (37.0-47.0); Hemoglobin 13.7 g/dl (12.0-16.0); Imm Gran Abs Auto 0.01 X10*3/uL (0.00-0.03); Imm Gran Pct Auto 0.2 % (0.0-0.4); Lymphocytes Absolute Auto 1.4 X10*3/uL (1.2-4.9); Mean Corpuscular HGB Conc 33.0 g/dl (31.0-35.0); Mean Corpuscular Hemoglobin 28.8 pg (27.0-33.0); Mean Corpuscular Volume 87.2 fL (80.0-98.0); NRBC Abs Auto 0.000 X10*3/uL (0.0-0.012); NRBC Pct Auto 0.0 /100WBC (0.0-0.2); Platelet Count 268 X10*3/uL (160-400); Red Blood Count 4.76 X10*6/uL (4.20-5.50); White Blood Count 5.0 X10*3/uL (4.8-10.8)
[2025-01-18 08:24] LABS: Appearance Urine Cloudy; Glucose Urine UA Negative (Negative); PH 6.0 (5.0-9.0); Specific Gravity - Urine <= 1.005 (1.005-1.025); UMIC TRIGGER UA YES
[2025-01-18 08:24] LABS: Alanine Aminotransferase 18 U/L (0-31); Albumin Level 4.3 g/dL (3.5-5.0); Alkaline Phosphatase 56 U/L (39-117); Anion Gap 15 (12-20); Aspartate Amino Transferase 23 U/L (5-31); Blood Urea Nitrogen 19 mg/dL (9-16); Calcium 9.4 mg/dL (8.4-10.2); Carbon Dioxide 23 mmol/L (22-29); Chloride 106 mmol/L (96-108); Estimated Glomerular Filt Rate > 60; Potassium 4.1 mmol/L (3.3-5.1); Sodium 140 mmol/L (135-145); Total Protein 7.1 g/dL (6.5-8.0)
[2025-01-18 09:53] LABS: Protein/Creatinine Ratio, Ur 0.22 (<0.2); Total Protein Urine Random 8 mg/dL (<12)
[2025-01-22 15:14] LABS: Vitamin D 25-OH, D2 <4 ng/mL; Vitamin D 25-OH, D3 107 ng/mL; Vitamin D 25-OH, Total 107 ng/mL (30-100)
== END 2025-01-18 06:59 | disposition home or self-care (01) ==
LOC: HO.LAB 06:58
PROVIDERS: PCP Nurse Practitioner Family; Referring Provider Student in an Organized Health Care Education/Training Program; Visit Provider Student in an Organized Health Care Education/Training Program
DX: Z01.84 Encounter for antibody response examination (principal); M32.9 Systemic lupus erythematosus, unspecified; E55.9 Vitamin D deficiency, unspecified
CPT/HCPCS: 36415; 80053; 81001; 82306; 82570; 84156; 85025; 85652; 86140; 86160; 86225

== ENCOUNTER 2025-02-01 08:13 | Outpatient (AMB) | payer MEDICARE, SELFPAY ==
--- NOTE | 2025-02-01 08:55 | A.OFFVIS_ITS ---
Vital Signs 02/01/25 09:01 Height 5 ft 3 in Weight 103 lb BMI 18.2 BP 112/60 Blood Pressure Location Lt brachial Position Sitting Pulse 67 Pulse Source Pulse Oximeter Pulse Oximetry (%) 99 Oxygen Delivery Method Room Air Intake Visit Reasons: LSSc Intake Note: Patient presents for LSSc follow up. Patient stated she stop taking Alendronate on 11/18 due to GI upset. Allergies gluten Adverse Reaction (Unknown, Verified 02/01/25 08:58) Unknown house dust Adverse Reaction (Unknown, Verified 02/01/25 08:58) Unknown mold Adverse Reaction (Unknown, Verified 02/01/25 08:58) Unknown pollen extracts Adverse Reaction (Unknown, Verified 02/01/25 08:58) Unknown Medication List - Last Reconciled 02/01/25 by Cecily Orellana MD amlodipine 10 mg PO BEDTIME omeprazole 20 mg PO DAILY HPI Comments Details: Patient is a 74-year-old female with hypertension, GERD, limited cutaneous sclerosis, polyarticular OA and osteoporosis here today for follow up Interval History: Patient last seen 04/20/[address] 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 Her previous industrial manufacturing technician left the practice. 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 Patient also had also a esophageal dysmotility and hiatal hernia. Patient states that she is doing well overall. Occasional swelling and stiffness of her knuckles, not currently. Raynaud's is generally well controlled. Takes amlodipine 10 mg daily and has hand and toe warmers. Is very careful in the cold. She denies any shortness of breath. Walks the dog for 30 minutes, 1-1/2 miles without cough or shortness of breath. Is able to do 12 steps without stopping or shortness of breath. States that her GERD is relatively well controlled. She tries not to take omeprazole every day. Over the last 4 years she has been much more careful with swallowing food as sometimes food gets stuck. She makes sure to cut meat very small so they do not get stuck. No new skin changes. Osteoporosis - Alendronate 2022 - 2024. Stopped due to GI upset Current Rheumatology Medication(s): Alendronate 70mg PO weekly (no longer taking) [facility] Medical History Presbyopia Dysphagia Osteoporosis Degenerative joint disease Disorder of connective tissue Raynaud's disease Surgical History H/O total hysterectomy Social History Alcohol intake: current Alcohol intake frequency: holidays/special occasions only Alcohol type: wine Patient Tobacco Use Status: Never used Tobacco Review of Systems Const Details: Review of Systems Constitutional: Denies fever, chills, weight loss ENT: Denies vision changes, eye pain or eye redness, dental caries, dry mouth GI: Denies nausea, vomiting, diarrhea, abdominal pain, change in BM Pulm: Denies SOB, PATTERSON, hemoptysis, wheezing Cards: Denies chest pain, palpitations Skin: Denies photosensitivity, LIVESTOCK PRODUCER: Denies headaches, weakness, paresthesias, recurrent falls MSK: as per HPI All other systems reviewed and are unremarkable except noted above Physical Exam Exam Exam: Vital signs reviewed Physical Examination CONSTITUITIONAL Patient alert and cooperative. Well appearing and in no apparent painful distress HEENT Conjunctiva and sclera clear. No lymphadenopathy. CHEST/RESPIRATORY SYSTEM Normal respiratory effort and able to speak in complete sentences. Clear to auscultation bilaterally. No crackles, rales, rhonchi, wheezes heard. CARDIAC SYSTEM Regular rate and rhythm. S1 and S2 heard no murmurs. Radial pulses intact bilaterally MSK Hands * Right Hand: Able to make a fist. No swelling or tenderness to palpation of these joints. Prominent 2nd and 3rd MCPs without TTP. Flexion deformity of the 5th finger. Herbedens nodes noted * Left Hand: Able to make a fist. No swelling or tenderness to palpation of these joints. Herbedens nodes noted with ulnar deviation at the 2nd DIP * Mild ulnar deviation of bilateral hands Wrists * Right Wrist: Full ROM. 70 degrees of wrist flexion, 80 degrees of wrist extension. No swelling or TTP * Left Wrist: Full ROM. 70 degrees of wrist flexion, 80 degrees of wrist extension. No swelling or TTP Elbows * Right Elbow: Full ROM. No swelling or TTP. No TTP of the medial and lateral epicondyles * Left Elbow: Full ROM. No swelling or TTP. No TTP of the medial and lateral epicondyles Shoulders * Right shoulder: Full ROM. No swelling noted. No TTP of the AC joint, subacromial bursa or posterior shoulder * Left shoulder: Full ROM. No swelling noted. No TTP of the AC joint, subacromial bursa or posterior shoulder Knees * Right knee: Full ROM. No swelling noted. No TTP of the knee joint lie or pes anserine bursa * Left knee: Full ROM. No swelling noted. No TTP of the knee joint lie or pes anserine bursa. Ankles * Right ankle: Good ankle dorsiflexion and plantar flexion. No swelling. No TTP of the ankle joint * Left ankle: Good ankle dorsiflexion and plantar flexion. No swelling. No TTP of the ankle joint Feet * Right foot: Negative squeeze test * Left foot: Negative squeeze test Tender points? * No tenderness to palpation of the bilateral trapezius, supraspinatus, anterior costochondral junctions, bilateral suboccipital muscle insertions SKIN Flat telangiectasias on the face Abnl nailfold capillaries MRSS 4 (2 right fingers, 2 left fingers) Vital Signs: Last Vital Signs Pulse 67 02/01/25 09:01 BP 112/60 02/01/25 09:01 Pulse Ox 99 02/01/25 09:01 Oxygen Delivery Method Room Air 02/01/25 09:01 BMI result Body Mass Index 18.2 Results Reviewed Results Reviewed: Laboratory Tests 04/13/24 01/18/25 07:25 07:28 WBC 5.0 RBC 4.76 Hgb 13.7 Hct 41.5 Plt Count 268 D ESR 19 Sodium 140 Potassium 4.1 Chloride 106 Carbon Dioxide 23 BUN 19 H Creatinine 0.90 AST 23 ALT 18 Alkaline Phosphatase 56 C-Reactive Protein 0.34 0.94 H 25-OH Vitamin D Total 107 H Laboratory Tests 01/18/25 07:28 Double Strand DNA Ab 3 Complement C3 125 Complement C4 28 ECHO 11/2024 Conclusions: - Normal left ventricular size, thickness, systolic function, and wall motion. The visually estimated ejection fraction is between 65-70%. Diastolic function is normal for age. - Normal right ventricular cavity size and systolic function. - There is mild aortic valve stenosis. Findings Left Ventricle Normal left ventricular size, thickness, systolic function, and wall motion. The visually estimated ejection fraction is between 65-70%. Diastolic function is normal for age. Right Ventricle Normal right ventricular cavity size and systolic function. Atria The left atrium is normal in size. The right atrium was not well visualized. Aortic Valve There is a normal trileaflet aortic valve. There is mild calcification of the aortic valve. There is mild aortic valve stenosis. The peak aortic velocity is 2.14 m/s. The mean gradient is 9 mmHg. The aortic valve area is 1.19 cm2. There is trace (trivial) aortic valve regurgitation. Mitral Valve Normal mitral valve structure and function. There is no mitral valve regurgitation. There is no mitral valve stenosis. Pulmonic Valve The pulmonic valve is likely normal. Tricuspid Valve Normal tricuspid valve structure. There is no tricuspid valve regurgitation. Normal right atrial pressure. There is no evidence of pulmonary hypertension. Great Vessels The visualized portions of the pulmonary artery and branches are normal. Venous The inferior vena cava is normal in size and collapses greater than 50% with inspiration. Pericardium/Pleural There is no evidence of pericardial effusion. Assessment & Plan Assessment & Plan (1) Limited scleroderma: Comment: dx 2006. (Sclerodactyly, telangiectasias, Raynaud's, esophageal dysmotility, + centromere) Intermittently low C3 and C4 Code(s): M34.9 - Systemic sclerosis, unspecified Category: Medical Plan: #Limited cutaneous sclerosis Patient is a 74 year old female with limited cutaneous sclerosis here today for follow up Plan - Raynaud's - stable without ulcers. Continue conservative measures - Screening for PAH - Last ECHO 11/2024 normal. Check every 2-3 years - Screening for ILD - Chest is clear and no SOB. If this changes will order CT chest - GERD - managed with PPIs and Tums - Calcinosis - no complaints - RTC 6 months - Labs before visit: CBC, CMP, ESR, CRP (2) Osteoporosis: Comment: Alendronate started 12/2022 DEXA 12/2024. AP Spine 0.5, Left femur neck -2.2, Left femur total -2.6 DEXA 10/2021. Left femur total -3.0 Code(s): M81.0 - Age-related osteoporosis without current pathological fracture Category: Medical Qualifiers: Osteoporosis type: age-related Presence of current pathological fracture: without current pathological fracture Qualified Code(s): M81.0 - Age- related osteoporosis without current pathological fracture Plan: #Osteoporosis Patient with osteoporosis. Self discontinued her alendronate due to GI upset Based on her recent bone density, there was improvement in her T score but she still has osteoporosis and requires at least 5 years of bisphosphonates Since she did not tolerate PO bisphonates and she had good response we can switch to IV REclast once a year. Discussed this with the patient and she is in agreement Her Vit D level is high and she needs to reduce her Vit D supplementation at home Encouraged weight bearing exercises Plan - Stop alendronate - Start IV reclast 5mg yearly - Decrease Vit D supplementation - Weight bearing exercises - Pamphlet given (3) Encounter for ongoing osteoporosis therapy, bisphosphonates: Code(s): M81.0 - Age-related osteoporosis without current pathological fracture; Z79.83 - jail (current) use of bisphosphonates Plan: #Long-term Use of Bisphosphonates Risks and benefits of bisphosphonates in the management of osteoporosis Benefits include improved bone density, decreased fracture risk Risks include atypical femoral fractures, GI upset, esophageal strictures Contraindicated in patients with a creatinine clearance < 30 to 35 ml/min Keep vitamin-D at least 35 ng/mL Plan I spent 30 minutes reviewing the record and labs, taking a history, examining the patient, discussing the treatment plan, ordering diagnostic work up and documenting in the medical record Orders: Orders Vitamin D 25-OH Total 6 Months M81.0 - Age-related osteoporosis without current pathological fracture Comprehensive Met. Panel 6 Months M81.0 - Age-related osteoporosis without current pathological fracture Referrals Infusion Center Notification M81.0 - Age-related osteoporosis without current pathological fracture Coding Level of Care Code Est Pt Level 4 (88175) Complex EM visit Add On G2211 Diagnoses Limited scleroderma M34.9 Age-related osteoporosis without current pathological fracture M81.0 Osteoporosis type: age-related Presence of current pathological fracture: without current pathological fracture Encounter for ongoing osteoporosis therapy, bisphosphonates M81.0; Z79.83
[2025-02-01 09:01] VITALS: BP 112/60; PULSE 67; O2SAT 99; BMI 18.2
== END 2025-02-01 09:50 | disposition home or self-care (01) ==
LOC: HO.RHES 08:14
PROVIDERS: PCP Nurse Practitioner Family; Visit Provider Student in an Organized Health Care Education/Training Program
DX: M34.9 Systemic sclerosis, unspecified (principal); M81.0 Age-related osteoporosis without current pathological fracture; Z79.83 Long term (current) use of bisphosphonates
CPT/HCPCS: 99214; G2211

== ENCOUNTER → 2025-02-01 08:13 | Outpatient (BNVA) | payer MEDICARE, SELFPAY | PROVIDERS: PCP Nurse Practitioner Family; Visit Provider Student in an Organized Health Care Education/Training Program | DX: M81.0 Age-related osteoporosis without current pathological fracture (principal); M34.9 Systemic sclerosis, unspecified; Z79.83 Long term (current) use of bisphosphonates | CPT/HCPCS: 99212 ==

== ENCOUNTER 2025-02-15 06:44 | Outpatient (REF) | payer MEDICARE, SELFPAY ==
--- OUTSIDE RECORDS SUMMARY | 2025-02-15 06:46 | XMS_ITS | Encounter Summary ---
Author Organization [facility] Address [address] [place] [phone] Phone Care Team Providers Care Pulvi Mixer Operator Name Role Phone Sukh Bingham MD Primary Care Provider Susi Jean NP Primary Care Provider Reason for Referral * Occupational Therapy (Routine) - Closed Specialty Diagnoses / Procedures Referred By Nilay vincent Referred To Contact Occupational Therapy Diagnoses Encounter for rehabilitation Delvin Estrada MD Phone: tel: fax: [email or web address] Najma Centeno OT Phone: tel: mailto:[email or web address] Referral ID Status Reason Start Date Expiration Date Visits Re quested Visits Authorized [id number] Closed 11/17/2017 06/26/2018 25 25 Encounter Details Date Type Department Care Team (Latest Contact Info) Description 11/07/2017 Transcribe Orders [facility] [address] [place] [address] Delvin Estrada MD [address] [place] [phone] [email or web address] Encounter for rehabilitation (Primary Dx) Social History Tobacco Use Types Packs/Day Years Used Date Smoking Tobacco: Never Assessed Comments Unknown Sex and Gender Information Value Date Recorded Sex Assigned at Not on file Legal Sex Female 10:34 AM EDT Gender Identity Not on file Sexual Orientation Not on file documented as of this encounter Plan of Treatment Scheduled Referrals Name Type Priority Associated Diagnoses Orde r Schedule Ambulatory referral to [facility] Occupational Therapy Outpatient Referral Routine Encounter for rehabilitation Ordered: 11/07/2017 documented as of this encounter Visit Diagnoses Diagnosis Encounter for rehabilitation- Primary documented in this encounter Additional Health Concerns Infection Onset Date Last Indicated Resolved Time CoV-Risk 06/15/2022 06/15/2022 06/26/2022 1:23 AM EST documented as of this encounter Care Teams Pulvi Mixer Operator Relationship Specialty Start Date End Date Sukh Bingham MD [address] [place] [address] PCP - General Internal Medicine 11/07/17 06/14/22 Susi Jean NP [address] [place] [address] PCP - General Family Medicine 06/15/22 documented as of this encounter Additional Source Comments The information contained in this document represents components of the legal health record. It is not the complete legal health record[facility]
[2025-02-15 07:44] LABS: Alanine Aminotransferase 19 U/L (0-31); Albumin Level 4.3 g/dL (3.5-5.0); Alkaline Phosphatase 45 U/L (39-117); Anion Gap 11 (12-20); Aspartate Amino Transferase 24 U/L (5-31); Blood Urea Nitrogen 21 mg/dL (9-16); Calcium 9.3 mg/dL (8.4-10.2); Carbon Dioxide 28 mmol/L (22-29); Chloride 106 mmol/L (96-108); Estimated Glomerular Filt Rate 60; Potassium 4.4 mmol/L (3.3-5.1); Sodium 141 mmol/L (135-145); Total Protein 6.8 g/dL (6.5-8.0)
== END 2025-02-15 06:45 | disposition home or self-care (01) ==
LOC: HO.LAB 06:44
PROVIDERS: PCP Nurse Practitioner Family; Visit Provider Student in an Organized Health Care Education/Training Program
DX: M34.9 Systemic sclerosis, unspecified (principal)
CPT/HCPCS: 36415; 80053

== ENCOUNTER 2025-02-28 07:35 | Outpatient (RCR) | payer MEDICARE, SELFPAY ==
[2025-02-28 07:45] VITALS: BP 140/69; PULSE 62; RESP 16; TEMP 36.7; O2SAT 96
== END 2025-02-28 08:54 | disposition home or self-care (01) ==
LOC: HO.INF 07:35
PROVIDERS: Visit Provider Student in an Organized Health Care Education/Training Program
DX: M81.0 Age-related osteoporosis without current pathological fracture (principal)
CPT/HCPCS: 96374; J3489